=== PATIENT | male | born 1990 | race Caucasian/White ===

== ENCOUNTER 2024-08-13 06:31 | Day surgery (SDC) | payer MEDICARE, OTHER, SELFPAY ==
[2024-08-09 10:13] VITALS: BMI 26.5
[2024-08-09 10:37] LABS: Hematocrit 41.4 % (39.0-52.0); Hemoglobin 14.6 g/dL (13.0-18.0); Mean Corp Hgb Conc. 35.3 g/dL (33.0-37.0); Mean Corpuscular Volume 87.9 fL (80.0-94.0); Platelet Count 189 10^3/uL (130-400); Red Blood Cell Count 4.71 10^6/uL (4.70-6.10); Red Cell Dist. Width 12.5 % (11.5-14.5); White Blood Cell Count 6.3 10^3/uL (4.8-10.8)
[2024-08-09 10:47] LABS: INR 1.06; PT 13.8 Sec (11.4-14.6)
[2024-08-09 11:02] LABS: Blood Urea Nitrogen 14 mg/dl (9-20); Calcium 9.7 mg/dl (8.4-10.2); Carbon Dioxide 23 mmol/L (22-30); Chloride 106 mmol/L (98-107); Estimated Creatinine Clearance 107 ml/min; Glucose 84 mg/dl (70-99); Potassium 4.3 mmol/L (3.5-5.1); Sodium 145 mmol/L (135-145); eGFR > 60.00
[2024-08-13] VITALS (8 sets, daily range): BP systolic 114–131; BP diastolic 74–86; BMI 26.5
[2024-08-13] MEDS: ROXICODONE 5 MG PO (16:17)
== END 2024-08-13 16:34 | disposition home or self-care (01) ==
LOC: SDS 06:31
PROVIDERS: ATTENDING PHYSICIAN Dentist Oral and Maxillofacial Surgery; FAMILY PHYSICIAN Family Medicine
PROC: 0CDXXZ1 Extraction of Lower Tooth, Multiple, External Approach (ICD-10-PCS; 2024-08-13)
PROC: 0CDWXZ1 Extraction of Upper Tooth, Multiple, External Approach (ICD-10-PCS; 2024-08-13)
DX: K02.9 Dental caries, unspecified (principal)
CPT/HCPCS: D7210; 36415; 80048; 85027; 85610; 85730